=== PATIENT | female | born 1990 | race Caucasian/White ===

== ENCOUNTER 2019-09-07 13:26 | Emergency (ER) | payer OTHER ==
[~2019-09-07] VITALS: Ht 154.9 cm; Wt 59.4 kg
[2019-09-07 13:33] VITALS: BP 116/76
[2019-09-07] MEDS ORDERED: NACL 0.9% 500 ML IV ONE (13:36)
[2019-09-07] MEDS ORDERED: KETOROLAC 30 MG/ML VIAL IVP ONE (13:40)
[2019-09-07] MEDS ORDERED: ONDANSETRON 4 MG/2 ML VIAL IVP ONE (13:40)
--- NOTE | 2019-09-07 14:10 | NUR ---
C/O L SIDED FLANK PAIN 09/27 X2 DAYS. PT STATES SHE PASSED A KIDNEY STONE 3 DAYS AGO, THE PAIN WAS RELIEVED TEMPORARILY AND THEN BEGAN TO COME BACK YESTERDAY. PT DENIES N/V/D/FEVER/DYSURIA/URINARY RETENTION. TENDERNESS NOTED TO L FLANK RADIATING DOWN TO LLQ. PT ALSO REPORTS SHE IS UNSURE IF SHE IS HER AND HER ARE TRYING TO CONCEIVE. BED IN LOW POSITION, PT PROVIDED WITH GOWN. SIDE RAIL UP X1
--- NOTE | 2019-09-07 14:14 | NUR ---
waiting on serum HCG to administer toradol
--- NOTE | 2019-09-07 14:23 | NUR ---
WAITING ON SERUM HCG FOR CT SCAN
--- NOTE | 2019-09-07 15:21 | NUR ---
MEDICATED ORDERED FOR PAIN. WILL REASSESS.
--- NOTE | 2019-09-07 15:23 | NUR ---
PT LEFT TO CT VIA WHEELCHAIR
[2019-09-07 16:08] VITALS: BP 126/78
== END 2019-09-07 16:09 | disposition home or self-care (01) ==
LOC: MED 13:26
DX: N23 Unspecified renal colic (principal); Z88.0 Allergy status to penicillin; Z98.890 Other specified postprocedural states; Z87.442 Personal history of urinary calculi
CPT/HCPCS: 36415; 74176; 81002; 81025; 84702; 96374; 96375; 99284; J1885; J2405; J7030

== ENCOUNTER 2020-01-11 18:11 | Outpatient (CLI) | payer OTHER ==
[2020-01-11 18:57] LABS: BASOPHILS # (AUTO) 0.1 K/uL (0.00-0.22); BASOPHILS % (AUTO) 0.7 % (0.0-2.0); EOSINOPHILS # (AUTO) 0.1 K/uL (0-0.4); EOSINOPHILS % (AUTO) 0.8 % (0.0-4.0); HEMATOCRIT 40.5 % (36-48); HEMOGLOBIN 13.5 g/dL (12.0-16.0); LYMPHOCYTES # (AUTO) 2.2 K/uL (2.5-16.5); LYMPHOCYTES % (AUTO) 24.9 % (20.5-51.1); MEAN CORPUSCULAR HEMOGLOBIN 30 pg (27-31); MEAN CORPUSCULAR HGB CONC 33 g/dL (33-37); MEAN CORPUSCULAR VOLUME 89.6 fL (80-94); MONOCYTES # (AUTO) 0.6 K/uL (0.8-1.0); MONOCYTES % (AUTO) 6.8 % (1.7-9.3); NEUTROPHILS % (AUTO) 66.8 % (42.2-75.2); PLATELET COUNT (AUTO) 273 K/uL (140-450); RED BLOOD CELL COUNT(AUTO) 4.53 MIL/uL (4.20-5.40); RED CELL DISTRIBUTION WIDTH 12.7 % (11.6-13.7); WHITE BLOOD COUNT (AUTO) 8.9 K/uL (4.8-10.8)
[2020-01-11 19:18] LABS: ALBUMIN 3.9 g/dL (3.4-5.0); ANION GAP 14.8 (8-16); CARBON DIOXIDE 25.7 mmol/L (21-32); CHOL/HDL RATIO 3.3 (1-4.5); CREATININE 0.7 mg/dL (0.6-1.3); POTASSIUM 3.5 mmol/L (3.5-5.1); THYROID STIMULATING HORMONE 1.41 uIU/mL (0.34-3.74); TOTAL BILIRUBIN 0.5 mg/dL (0.0-1.0)
[2020-01-12 15:10] LABS: ESTRADIOL SERUM 65.2 pg/mL (.); FOLLICLE STIMULATING HORMONE 2.1 mIU/mL (.); LUTEINIZING HORMONE 2.2 mIU/mL (.)
== END 2020-01-11 21:26 | disposition home or self-care (01) ==
LOC: MLB 18:11
DX: N92.6 Irregular menstruation, unspecified (principal)
CPT/HCPCS: 36415; 80053; 82670; 83001; 83002; 83036; 84144; 84146; 84403; 84443; 84703; 85025

== ENCOUNTER 2020-01-12 15:01 | Outpatient (CLI) | payer OTHER | END 2020-01-12 21:03 | disposition home or self-care (01) | LOC: MUS 15:01 | DX: N85.8 Other specified noninflammatory disorders of uterus (principal); N92.6 Irregular menstruation, unspecified | CPT/HCPCS: 76830; Q0092 ==

== ENCOUNTER 2020-02-20 08:42 | Outpatient (CLI) | payer OTHER ==
[2020-02-20 09:36] LABS: APPEARANCE,URINE HAZY (CLEAR); BASOPHILS # (AUTO) 0.1 K/uL (0.00-0.22); BASOPHILS % (AUTO) 0.8 % (0.0-2.0); BILIRUBIN,URINE NEGATIVE (NEGATIVE); BLOOD, URINE 1+ (NEGATIVE); COLOR,URINE YELLOW (YELLOW); EOSINOPHILS # (AUTO) 0.1 K/uL (0-0.4); EOSINOPHILS % (AUTO) 0.8 % (0.0-4.0); HEMATOCRIT 40.4 % (36-48); HEMOGLOBIN 13.5 g/dL (12.0-16.0); LEUKOCYTE ESTERASE ,URINE TRACE (NEGATIVE); LYMPHOCYTES # (AUTO) 1.9 K/uL (2.5-16.5); LYMPHOCYTES % (AUTO) 24.7 % (20.5-51.1); MEAN CORPUSCULAR HEMOGLOBIN 30 pg (27-31); MEAN CORPUSCULAR HGB CONC 34 g/dL (33-37); MONOCYTES # (AUTO) 0.5 K/uL (0.8-1.0); MONOCYTES % (AUTO) 6.4 % (1.7-9.3); NEUTROPHILS # (AUTO) 5.3 K/uL (1.8-7.7); NEUTROPHILS % (AUTO) 67.3 % (42.2-75.2); NITRITE, URINE NEGATIVE (NEGATIVE); PLATELET COUNT (AUTO) 274 K/uL (140-450); RED BLOOD CELL COUNT(AUTO) 4.48 MIL/uL (4.20-5.40); RED CELL DISTRIBUTION WIDTH 12.9 % (11.6-13.7); UGLUCOSE NEGATIVE (NEGATIVE); WHITE BLOOD COUNT (AUTO) 7.8 K/uL (4.8-10.8)
[2020-02-20 11:31] LABS: RBC,URINE 11-20 (MOD) /HPF (0-5); URINE AMORPHOUS URATE 1+ /HPF (None Seen); WBC,URINE 0-5 /HPF (0-5)
== END 2020-02-20 20:39 | disposition home or self-care (01) ==
LOC: MLB 08:42
DX: E84.9 Cystic fibrosis, unspecified (principal); Z13.71 Encounter for nonprocreative screening for genetic disease carrier status
CPT/HCPCS: 36415; 81001; 83036; 84144; 84443; 84702; 85025; 86592; 86702; 86762; 86886; 86900; 86901; 87086; 87340

== ENCOUNTER 2020-03-10 09:32 | Outpatient (CLI) | payer OTHER | END 2020-03-10 20:18 | disposition home or self-care (01) | LOC: MUS 09:32 | DX: O26.841 Uterine size-date discrepancy, first trimester (principal); N83.201 Unspecified ovarian cyst, right side; Z3A.08 8 weeks gestation of pregnancy | CPT/HCPCS: 76801 ==

== ENCOUNTER 2020-05-23 11:09 | Outpatient (CLI) | payer OTHER | END 2020-05-23 21:05 | disposition home or self-care (01) | LOC: MUS 11:09 | DX: O33.5XX0 Maternal care for disproportion due to unusually large fetus, not applicable or unspecified (principal); Z3A.18 18 weeks gestation of pregnancy | CPT/HCPCS: 76805 ==

== ENCOUNTER → 2020-06-29 | Outpatient (CLI) | payer OTHER ==
[2020-06-29 10:21] LABS: BASOPHILS # (AUTO) 0.1 K/uL (0.00-0.22); BASOPHILS % (AUTO) 0.6 % (0.0-2.0); EOSINOPHILS # (AUTO) 0.1 K/uL (0-0.4); EOSINOPHILS % (AUTO) 0.9 % (0.0-4.0); HEMATOCRIT 34.2 % (36-48); HEMOGLOBIN 11.5 g/dL (12.0-16.0); LYMPHOCYTES # (AUTO) 1.7 K/uL (2.5-16.5); LYMPHOCYTES % (AUTO) 18.7 % (20.5-51.1); MEAN CORPUSCULAR HEMOGLOBIN 31 pg (27-31); MEAN CORPUSCULAR HGB CONC 34 g/dL (33-37); MEAN CORPUSCULAR VOLUME 91.6 fL (80-94); MONOCYTES # (AUTO) 0.5 K/uL (0.8-1.0); MONOCYTES % (AUTO) 5.6 % (1.7-9.3); NEUTROPHILS # (AUTO) 6.6 K/uL (1.8-7.7); NEUTROPHILS % (AUTO) 74.2 % (42.2-75.2); PLATELET COUNT (AUTO) 227 K/uL (140-450); RED BLOOD CELL COUNT(AUTO) 3.73 MIL/uL (4.20-5.40); RED CELL DISTRIBUTION WIDTH 13.7 % (11.6-13.7); WHITE BLOOD COUNT (AUTO) 8.9 K/uL (4.8-10.8)
[2020-06-29 10:35] LABS: GLUCOSE,FASTING GESTATIONAL 82 mg/dL (70-110)
== END | disposition home or self-care (01) ==
LOC: MLB 09:17
DX: Z13.1 Encounter for screening for diabetes mellitus (principal)
CPT/HCPCS: 36415; 82951; 83036; 85025; 86886

== ENCOUNTER 2020-08-21 11:38 | Outpatient (CLI) | payer OTHER | END 2020-08-21 18:58 | disposition home or self-care (01) | LOC: MUS 11:38 | DX: O26.843 Uterine size-date discrepancy, third trimester (principal); Z3A.32 32 weeks gestation of pregnancy | CPT/HCPCS: 76805 ==

== ENCOUNTER 2020-12-12 19:36 | Emergency (ER) | payer OTHER ==
[~2020-12-12] VITALS: Ht 152.4 cm; Wt 61.2 kg
[2020-12-12 20:01] VITALS: BP 116/70
--- NOTE | 2020-12-12 20:01 | NUR ---
TO BED AMBULATORY
--- NOTE | 2020-12-12 20:37 | NUR ---
PT BIB SELF FOR SUDDEN STRONG PRESSURE AND PAIN TO SUPRAPUBIC AREA X 2 HOURS, RECENT X 2 MONTHS AGO. PT STATES SHE IS UNSURE IF PAIN IS IN HER "UTERUS OR VAGINA" AND REPORTS PAIN RADIATES TO HER BILATERAL THIGHS OCASSIONALLY. PT REPORTS PAIN WAS 8/10, BUT RESOLVED TO 3/10 FOLLOWING 600 MG IBUPROFEN. PT REPORTS SHE ALSO FEELS DEHYDRATED. PT REPORTS SHE IS NOT . MED HX: DENIES ALLERGIES: PENICILLINS SX: BACK (2015, 2017) AND X 2 MONTHS AGO.
[2020-12-12 21:12] LABS: APPEARANCE,URINE CLEAR (CLEAR); BILIRUBIN,URINE NEGATIVE (NEGATIVE); BLOOD, URINE NEGATIVE (NEGATIVE); COLOR,URINE YELLOW (YELLOW); LEUKOCYTE ESTERASE ,URINE NEGATIVE (NEGATIVE); NITRITE, URINE NEGATIVE (NEGATIVE); PH,URINE 6.5 (5.0-9.0); UGLUCOSE NEGATIVE (NEGATIVE)
--- NOTE | 2020-12-12 21:25 | NUR ---
Female Car Coupler accompanied female patient for Pelvic Exam. PT TOLERATED WELL. WET MOUNT AND CULTURE COLLECTED PER ORDER AND TAKEN TO LAB.
--- NOTE | 2020-12-12 21:35 | NUR ---
LAB AT BEDSIDE.
[2020-12-12 21:49] LABS: BASOPHILS # (AUTO) 0.1 K/uL (0.00-0.22); BASOPHILS % (AUTO) 0.7 % (0.0-2.0); EOSINOPHILS # (AUTO) 0.1 K/uL (0-0.4); EOSINOPHILS % (AUTO) 1.5 % (0.0-4.0); HEMATOCRIT 39.6 % (36-48); HEMOGLOBIN 12.9 g/dL (12.0-16.0); LYMPHOCYTES # (AUTO) 2.4 K/uL (2.5-16.5); LYMPHOCYTES % (AUTO) 29.4 % (20.5-51.1); MEAN CORPUSCULAR HEMOGLOBIN 28 pg (27-31); MEAN CORPUSCULAR HGB CONC 33 g/dL (33-37); MEAN CORPUSCULAR VOLUME 84.7 fL (80-94); MONOCYTES # (AUTO) 0.6 K/uL (0.8-1.0); NEUTROPHILS % (AUTO) 61.4 % (42.2-75.2); PLATELET COUNT (AUTO) 337 K/uL (140-450); RED BLOOD CELL COUNT(AUTO) 4.68 MIL/uL (4.20-5.40); RED CELL DISTRIBUTION WIDTH 16.1 % (11.6-13.7); WHITE BLOOD COUNT (AUTO) 8.2 K/uL (4.8-10.8)
[2020-12-12 22:07] LABS: ALBUMIN 3.8 g/dL (3.4-5.0); ANION GAP 13.3 (8-16); CARBON DIOXIDE 26.6 mmol/L (21-32); CREATININE 0.6 mg/dL (0.6-1.3); POTASSIUM 3.9 mmol/L (3.5-5.1); TOTAL BILIRUBIN 0.2 mg/dL (0.0-1.0)
--- NOTE | 2020-12-12 22:12 | NUR ---
PT TAKEN TO CT VIA W.C. WITH TECH.
--- NOTE | 2020-12-12 22:20 | NUR ---
PT RETURNED FROM CT VIA W.C.
[2020-12-12] MEDS ORDERED: IBUP-2213 PO (23:55)
[2020-12-13 00:10] VITALS: BP 106/68
[2020-12-16] MEDS ORDERED: NITR100C7 PO (08:39)
--- NOTE | 2020-12-16 10:44 | NUR ---
LATE ENTRY--- Urine culture results received from lab. Results shown to Dr. Trujillo. New prescription received. Dr. Trujillo left a voicemail for the patient about changes in new medications. Copy placed in C&S folder.
== END 2020-12-13 00:10 | disposition home or self-care (01) ==
LOC: MED 19:36
DX: R10.2 Pelvic and perineal pain (principal); Z98.890 Other specified postprocedural states; Z87.442 Personal history of urinary calculi
CPT/HCPCS: 36415; 80053; 81003; 81025; 83690; 85025; 87070; 87086; 87186; 87210; 99284